=== PATIENT | female | born 1960 | race Caucasian/White ===

== ENCOUNTER 2018-05-28 10:29 | Observation (INO) | payer BC ==
[~2018-05-28] VITALS: Ht 157.5 cm; Wt 79.5 kg
[~2018-05-28 10:29] MED LIST: IBUP-1984 PO
[2018-05-28 10:59] LABS: BASOPHILS % (AUTO) 0.5 % (0-1); EOSINOPHILS # (AUTO) 0.4 X10'3 (0-0.9); EOSINOPHILS % (AUTO) 5.1 % (0-6); HEMOGLOBIN 13.7 g/dl (12.0-16.0); LYMPHOCYTES # (AUTO) 2.5 X10'3 (1.1-4.8); LYMPHOCYTES % (AUTO) 32.2 % (21-51); MEAN CORPUSCULAR HEMOGLOBIN 30.8 PG (27.0-31.0); MEAN CORPUSCULAR HGB CONC 34.3 g/dL (33.0-36.5); MEAN CORPUSCULAR VOLUME 89.8 FL (78-98); MEAN PLATELET VOLUME 8.6 FL (7.4-10.4); MONOCYTES # (AUTO) 0.6 X10'3 (0-0.9); NEUTROPHILS # (AUTO) 4.3 X10'3 (1.8-7.7); NEUTROPHILS % (AUTO) 55.2 % (42-75); PLATELET COUNT 246 X10'3 (140-440); RED BLOOD COUNT 4.45 X10'6 (4.20-5.60); RED CELL DISTRIBUTION WIDTH 12.3 % (11.5-14.5); WHITE BLOOD COUNT 7.9 X10'3 (4.5-11.0)
[2018-05-28 11:10] LABS: PARTIAL THROMBOPLASTIN TIME 26 SECONDS (22-32); PROTHROMBIN TIME 10.6 SECONDS (9.0-12.0)
[2018-05-28 11:13] LABS: ALANINE AMINOTRANSFERASE 61 U/L (12-78); ALBUMIN 3.9 G/DL (3.4-5.0); ALKALINE PHOSPHATASE 88 IU/L (46-116); ANION GAP 13 (8-16); ASPARTATE AMINO TRANSFERASE 23 U/L (10-37); BILIRUBIN,TOTAL 0.4 MG/DL (0.1-1.0); BLOOD UREA NITROGEN 22 MG/DL (7-18); BUN/CREATININE RATIO 23.4 (6.6-38.0); CALCIUM 9.5 MG/DL (8.5-10.1); CHLORIDE 102 MMOL/L (99-107); CREATININE 0.94 MG/DL (0.40-0.90); GLUCOSE 158 MG/DL (70-104); POTASSIUM 4.4 MMOL/L (3.5-5.1); SODIUM 138 MMOL/L (135-145); TOTAL CARBON DIOXIDE 23.4 MMOL/L (24-32); TOTAL PROTEIN 7.7 G/DL (6.4-8.2); eGFR 62 ML/MIN
[2018-05-28] MEDS ORDERED: nitroGLYCERIN 0.4mg/hour patch TD ONE (11:45)
[2018-05-28] MEDS ORDERED: METF500T7 PO (12:11)
[2018-05-28] MEDS ORDERED: ondansetron/PF 4mg/2ml inj IV PRN (12:40)
[2018-05-28] MEDS ORDERED: nitroGLYCERIN 0.4mg SUBLingual tab SL PRN ×2 (12:40)
[2018-05-28] MEDS ORDERED: mag hydrox/Alum hydrox/simeth 30ml oral suspension PO PRN (12:40)
[2018-05-28] MEDS ORDERED: MESSAGE TO PHARMACY PO ONE (12:40)
[2018-05-28] MEDS ORDERED: potassium Cl 40MEQ/NS 500ml 500 ML IV PRN ×2 (12:40)
[2018-05-28] MEDS ORDERED: regadenoson 0.4mg/5ml syringe IV ONE (12:40)
[2018-05-28] MEDS ORDERED: magnesium 2GM in 50ml NS 50 ML IV PRN (12:40)
[2018-05-28] MEDS ORDERED: dextrose ORAL solution 15 GM/59 ML bottle PO PRN ×2 (12:40)
[2018-05-28] MEDS ORDERED: metoprolol tartrate 1mg/ml inj IV PRN (12:40)
[2018-05-28] MEDS ORDERED: magnesium Cl slow-release 64mg tablet PO PRN (12:40)
[2018-05-28] MEDS ORDERED: magnesium 4gm in 100ml NS 100 ML IV PRN (12:40)
[2018-05-28] MEDS ORDERED: magnesium hydroxide 30ml (MOM) UD suspension PO PRN (12:40)
[2018-05-28] MEDS ORDERED: glucagon, human recombinant 1mg kit SUBCUT PRN (12:40)
[2018-05-28] MEDS ORDERED: acetaminophen 325mg tablet PO PRN ×2 (12:40)
[2018-05-28] MEDS ORDERED: aminophylline 250mg/10ml inj. IV PRN (12:40)
[2018-05-28] MEDS ORDERED: insulin Lispro (HumaLOG) vial - multi-dose SQ SCH (12:40)
[2018-05-28] MEDS ORDERED: dextrose 50%-water 50ml dispensing syringe IV PRN ×2 (12:40)
[2018-05-28] MEDS ORDERED: potassium Cl 20 mEq SR tablet PO PRN ×2 (12:40)
[2018-05-28] MEDS ORDERED: ondansetron/PF 4mg/2ml inj IV ONE (12:45)
--- NOTE | 2018-05-28 12:45 | NUR ---
Informed Er Pt. has [facility] rg for 4mg Zofran one time now.
[2018-05-28 13:47] LABS: HEMOGLOBIN A1C 7.7 % (4.5-6.2)
--- NOTE | 2018-05-28 16:00 | NUR ---
Patient in room [facility]. I have received report from ARCHANA CHAPMAN and had the opportunity to ask questions and assume patient care.
[2018-05-28 16:15] VITALS: BP 130/76
--- NOTE | 2018-05-28 18:40 | NUR ---
Problems reprioritized. Patient report given, questions answered & plan of care reviewed with NIKOLE CHAPMAN.
[2018-05-28 19:00] VITALS: BP 123/70
[2018-05-28] MEDS ORDERED: insulin glargine (Lantus) pen - multi-dose SQ SCH (21:00)
--- NOTE | 2018-05-28 23:01 | NUR ---
Patient in room [facility]. I have received report from ARI Merino and had the opportunity to ask questions and assume patient care. Addendum: 05/28/18 at 2305 by Selena Garcia RN Amended: Links added.
[2018-05-29] VITALS (10 sets, daily range): BP systolic 110–146; BP diastolic 67–85
[2018-05-29 05:46] LABS: BASOPHILS % (AUTO) 0.6 % (0-1); EOSINOPHILS # (AUTO) 0.5 X10'3 (0-0.9); EOSINOPHILS % (AUTO) 6.7 % (0-6); HEMATOCRIT 38.7 % (35.0-45.0); HEMOGLOBIN 13.1 g/dl (12.0-16.0); LYMPHOCYTES # (AUTO) 2.3 X10'3 (1.1-4.8); MEAN CORPUSCULAR HEMOGLOBIN 30.7 PG (27.0-31.0); MEAN CORPUSCULAR VOLUME 90.3 FL (78-98); MEAN PLATELET VOLUME 8.9 FL (7.4-10.4); MONOCYTES # (AUTO) 0.6 X10'3 (0-0.9); NEUTROPHILS # (AUTO) 3.6 X10'3 (1.8-7.7); NEUTROPHILS % (AUTO) 51.7 % (42-75); PLATELET COUNT 206 X10'3 (140-440); RED BLOOD COUNT 4.28 X10'6 (4.20-5.60); RED CELL DISTRIBUTION WIDTH 12.3 % (11.5-14.5)
[2018-05-29 05:57] LABS: ALBUMIN 3.5 G/DL (3.4-5.0); ANION GAP 7 (8-16); BLOOD UREA NITROGEN 18 MG/DL (7-18); BUN/CREATININE RATIO 20.5 (6.6-38.0); CALCIUM 9.2 MG/DL (8.5-10.1); CHLORIDE 104 MMOL/L (99-107); CHOL/HDL RATIO 5.4 (0.00-4.99); CHOLESTEROL 233 MG/DL (0-200); CREATININE 0.88 MG/DL (0.40-0.90); GLUCOSE 157 MG/DL (70-104); HDL CHOLESTEROL 43 MG/DL (35-60); LDL CHOLESTEROL 160 MG/DL (50-100); POTASSIUM 4.1 MMOL/L (3.5-5.1); SODIUM 137 MMOL/L (135-145); TOTAL CARBON DIOXIDE 26.5 MMOL/L (24-32); TRIGLYCERIDES 265 MG/DL (20-135); eGFR 66 ML/MIN
--- NOTE | 2018-05-29 06:19 | NUR ---
Problems reprioritized. Patient report given, questions answered & plan of care reviewed with ARI Saldana. Addendum: 05/29/18 at 0620 by Selena Garcia RN Amended: Links added.
--- NOTE | 2018-05-29 06:30 | NUR ---
Patient in room [facility] 347. I have received report from Selena and had the opportunity to ask questions and assume patient care. Addendum: 05/29/18 at 0841 by Shana Barr RN Amended: Links added.
[2018-05-29] MEDS ORDERED: K and/or MAG REPLACEMENT MC SCH (08:00)
[2018-05-29] MEDS ORDERED: enoxaparin 40mg/0.4ml syringe SQ SCH (08:00)
[2018-05-29] MEDS ORDERED: aspirin 325mg tablet, delayed-release (Ecotrin) PO SCH (08:00)
[2018-05-29] MEDS ORDERED: aminophylline inj. 10 ML IV ONE (11:00)
[2018-05-29] MEDS ORDERED: regadenoson 0.4mg/5ml syringe IV ONE (11:00)
== END 2018-05-29 13:49 | disposition home or self-care (01) ==
LOC: ER 10:30 → SUR 3N 12:36
PROVIDERS: ADMIT Hospitalist; ATTEND Hospitalist
DX: R07.89 Other chest pain (principal); E11.9 Type 2 diabetes mellitus without complications; M54.9 Dorsalgia, unspecified; G89.29 Other chronic pain
CPT/HCPCS: 36415; 71045; 78452; 80048; 80053; 80061; 82948; 83036; 83735; 84484; 85025; 85610; 85730; 87070; 93005; 93017; 96372; 96374; 99284; A9500; G0378; J0280; J2405; J1650; J1815